=== PATIENT | female | born 1995 ===

== ENCOUNTER 2021-04-29 20:56 | Inpatient (IN) | payer OTHER ==
[~2021-04-29] VITALS: Ht 172.7 cm; Wt 61.2 kg
--- NOTE | 2021-04-29 21:13 | NUR ---
Patient BIBA for Tylenol OD. Patient took approx (50) 650mg Tylenol around 1700. She also had 3-4 mixed vodka drinks and 2 shots of tequila. Patient states she has been depressed her whole life and was trying to harm herself. Currently, patient denies wanting to . C/o abd pain. Denies nausea. EMS admin 4mg Zofran and 250mL NS. Patient is in NAD. Respirations even and unlabored.
[2021-04-29 21:26] LABS: BASOPHILS % (AUTO) 1 % (0-1); EOSINOPHILS % (AUTO) 1 % (1-7); LYMPHOCYTES % (AUTO) 39 % (22-44); MEAN CORPUSCULAR HEMOGLOBIN 31.7 pg (27.0-34.8); MEAN CORPUSCULAR HGB CONC 34.5 g/dL (32.4-35.8); MEAN PLATELET VOLUME 7.4 fL (7.4-10.4); MONOCYTES % (AUTO) 9 % (2-9); NEUTROPHILS % (AUTO) 51 % (42-75); PLATELET COUNT 292 x10^3/uL (130-400); RED BLOOD COUNT 4.22 x10^6/uL (3.82-5.3); RED CELL DISTRIBUTION WIDTH 12.3 % (9.6-15.2)
[2021-04-29 21:39] LABS: ALANINE AMINOTRANSFERASE 30 U/L (12-78); ALBUMIN 3.7 g/dL (3.4-5.0); ANION GAP 9 mmol/L (5-15); CALCIUM 7.6 mg/dL (8.5-10.1); CHLORIDE 109 mmol/L (98-107); CREATININE 0.91 mg/dL (0.55-1.02)
[2021-04-29 21:41] LABS: SALICYLATE LEVEL < 1.7 mg/dL (2.8-20.0)
[2021-04-29 21:48] LABS: ALKALINE PHOSPHATASE 56 U/L (45-117); BILIRUBIN,TOTAL 0.5 mg/dL (0.2-1.0); TOTAL PROTEIN 6.7 g/dL (6.4-8.2)
[2021-04-29] MEDS ORDERED: DEXTROSE 5% IV ONE ×2 (22:00→23:00)
[2021-04-29] MEDS ORDERED: ACETYLCYSTEINE IV ONE ×2 (22:00→23:00)
[2021-04-29] MEDS ORDERED: ONDANSETRON 2MG/ML, 2ML ONE ×2 (22:49→23:07)
--- NOTE | 2021-04-29 22:50 | NUR ---
Patient became nauseous. Admin Zofran per dec.
--- NOTE | 2021-04-29 23:02 | NUR ---
Nuris krishnamurthy in [facility] - 04/29/21 at 2303 by SKIP Report given to BRINA Priest. Patient to be transferred to room [facility].
--- NOTE | 2021-04-29 23:04 | NUR ---
Report given to BRINA Priest. Patient to be transferred to room 426-1.
--- NOTE | 2021-04-29 23:10 | NUR ---
Patient still nauseous with minimal vomiting. Admin additional Zofran per dec.
[2021-04-29] MEDS ORDERED: ONDANSETRON 2MG/ML, 2ML IVPush ONE ×2 (23:30)
[2021-04-29] MEDS ORDERED: ONDANSETRON 2MG/ML, 2ML IVPush PRN (23:30)
[2021-04-29] MEDS ORDERED: LABETALOL 5MG/ML, 20ML IVPush PRN (23:30)
[2021-04-30 01:15] VITALS: BP 149/94
[2021-04-30] MEDS ORDERED: DEXTROSE 5% IV ONE (03:00)
[2021-04-30] MEDS ORDERED: ACETYLCYSTEINE IV ONE (03:00)
[2021-04-30 05:19] LABS: BASOPHILS % (AUTO) 1 % (0-1); EOSINOPHILS % (AUTO) 6 % (1-7); LYMPHOCYTES % (AUTO) 10 % (22-44); MEAN CORPUSCULAR HEMOGLOBIN 28.4 pg (27.0-34.8); MEAN CORPUSCULAR HGB CONC 33.1 g/dL (32.4-35.8); MEAN PLATELET VOLUME 7.6 fL (7.4-10.4); MONOCYTES % (AUTO) 7 % (2-9); NEUTROPHILS % (AUTO) 76 % (42-75); PLATELET COUNT 318 x10^3/uL (130-400); RED BLOOD COUNT 2.93 x10^6/uL (3.82-5.3)
[2021-04-30 05:25] LABS: INTERNATIONAL NORMALIZED RATIO 1.07 (0.93-1.1); PROTHROMBIN TIME 11.4 Seconds (9.6-11.5)
[2021-04-30 05:28] LABS: ALBUMIN 2.6 g/dL (3.4-5.0); ANION GAP 7 mmol/L (5-15); CALCIUM 8.9 mg/dL (8.5-10.1); CHLORIDE 103 mmol/L (98-107)
[2021-04-30 05:33] LABS: ALANINE AMINOTRANSFERASE 13 U/L (12-78); ALKALINE PHOSPHATASE 81 U/L (45-117); BILIRUBIN,TOTAL 0.6 mg/dL (0.2-1.0); CREATININE 0.83 mg/dL (0.55-1.02); TOTAL PROTEIN 6.3 g/dL (6.4-8.2)
[2021-04-30 06:42] VITALS: BP 122/84
[2021-04-30 12:06] VITALS: BP 111/70
[2021-04-30 13:58] LABS: AMPHETAMINE SCREEN, URINE Negative (Negative); BARBITURATE SCREEN, URINE Negative (Negative); BENZODIAZEPINE SCREEN, URINE Negative (Negative); CANNABINOID SCREEN, URINE Negative (Negative); COCAINE SCREEN, URINE Negative (Negative); METHADONE SCREEN, URINE Negative (Negative); OPIATE SCREEN, URINE Negative (Negative)
[2021-04-30 18:01] LABS: ALBUMIN 3.6 g/dL (3.4-5.0); ANION GAP 7 mmol/L (5-15); CALCIUM 8.1 mg/dL (8.5-10.1); CHLORIDE 104 mmol/L (98-107)
[2021-04-30 18:05] LABS: ALANINE AMINOTRANSFERASE 35 U/L (12-78); ALKALINE PHOSPHATASE 51 U/L (45-117); BILIRUBIN,TOTAL 0.9 mg/dL (0.2-1.0); CREATININE 0.95 mg/dL (0.55-1.02); TOTAL PROTEIN 6.7 g/dL (6.4-8.2)
[2021-04-30 18:17] LABS: INTERNATIONAL NORMALIZED RATIO 1.22 (0.93-1.1); PROTHROMBIN TIME 12.9 Seconds (9.6-11.5)
[2021-04-30 20:00] VITALS: BP 117/76
[2021-05-01 02:22] VITALS: BP 107/58
[2021-05-01 06:03] LABS: BASOPHILS % (AUTO) 1 % (0-1); EOSINOPHILS % (AUTO) 1 % (1-7); LYMPHOCYTES % (AUTO) 41 % (22-44); MEAN CORPUSCULAR HEMOGLOBIN 31.9 pg (27.0-34.8); MEAN CORPUSCULAR HGB CONC 35.1 g/dL (32.4-35.8); MEAN PLATELET VOLUME 8.6 fL (7.4-10.4); MONOCYTES % (AUTO) 7 % (2-9); NEUTROPHILS % (AUTO) 50 % (42-75); PLATELET COUNT 274 x10^3/uL (130-400); RED BLOOD COUNT 4.12 x10^6/uL (3.82-5.3); RED CELL DISTRIBUTION WIDTH 12.2 % (9.6-15.2)
[2021-05-01 06:13] LABS: % IRON SATURATION 48 % (20-55); IRON LEVEL 127 mcg/dL (50-170); TOTAL IRON BINDING CAPACITY 267 mcg/dL (250-450)
[2021-05-01 06:38] VITALS: BP 104/55
[2021-05-01] MEDS ORDERED: POTASSIUM CHLORIDE 20 MEQ TAB.ER.PRT PO ONE (08:00)
[2021-05-01] MEDS: SERTRALINE 50MG TABLET PO SCH (08:10)
[2021-05-01 13:12] LABS: OCCULT BLOOD NEGATIVE (NEGATIVE)
[2021-05-01 14:19] VITALS: BP 100/66
[2021-05-01 19:41] VITALS: BP 113/76
[2021-05-02 00:25] VITALS: BP 102/65
[2021-05-02 06:44] LABS: % IRON SATURATION 19 % (20-55); CALCIUM 8.4 mg/dL (8.5-10.1); IRON LEVEL 54 mcg/dL (50-170); TOTAL IRON BINDING CAPACITY 288 mcg/dL (250-450)
[2021-05-02 07:12] LABS: ANION GAP 7 mmol/L (5-15); CHLORIDE 111 mmol/L (98-107)
[2021-05-02 07:28] VITALS: BP 104/71
[2021-05-02] MEDS: SERTRALINE 50MG TABLET PO SCH (08:36)
[2021-05-02] MEDS ORDERED: SERT50TA28 PO (10:25)
[2021-05-02 12:59] VITALS: BP 105/68
[2021-05-02 21:41] VITALS: BP 109/72
[2021-05-03 02:25] VITALS: BP 110/72
[2021-05-03 07:00] VITALS: BP 106/68
[2021-05-03] MEDS: SERTRALINE 50MG TABLET PO SCH (11:03)
[2021-05-03 13:02] VITALS: BP 104/66
== END 2021-05-03 15:55 | disposition home or self-care (01) | DRG 918 ==
LOC: ED 22:39 → EDIP 23:49 → 4WST 23:50
PROVIDERS: ADMIT Family Medicine; ATTEND Internal Medicine
DX: T39.1X2A Poisoning by 4-Aminophenol derivatives, intentional self-harm, initial encounter (principal); F33.2 Major depressive disorder, recurrent severe without psychotic features; D64.9 Anemia, unspecified; E83.51 Hypocalcemia; E87.6 Hypokalemia; F10.10 Alcohol abuse, uncomplicated; F19.94 Other psychoactive substance use, unspecified with psychoactive substance-induced mood disorder; R00.1 Bradycardia, unspecified; I10 Essential (primary) hypertension; F41.9 Anxiety disorder, unspecified; Y90.4 Blood alcohol level of 80-99 mg/100 ml; Y92.89 Other specified places as the place of occurrence of the external cause; Z88.8 Allergy status to other drugs, medicaments and biological substances
CPT/HCPCS: 36415; 80048; 80053; 80299; 80307; 80320; 80329; 82272; 82330; 83540; 83550; 83735; 84703; 85025; 85610; 93005; 96374; 96375; G0378; J0132; J2405; J7060; J7070; G0480